=== PATIENT | male | born 1990 ===

== ENCOUNTER 2017-01-04 20:57 | Emergency (ER) | payer OTHER ==
[2017-01-04 21:36] VITALS: BP 140/80; PULSE 66; RESP 18; TEMP 98.3; O2SAT 98
[2017-01-04] MEDS ORDERED: Lidocaine 2% Inj (20ml) INFIL ONE (21:48)
--- NOTE | 2017-01-04 21:51 | C.PDOC ---
History Of Present Illness 26 yo male come in for evaluation of head injury/laceration sustained early today at 6:30PM " when accidentally hit he head over the cabinet at work". Otherwise, pt denies LOC, syncope, headache, dizziness, visual changes, focal deficits, neck pain, denies significant wound bleeding. Ambulate to ED for evaluation, not in any apparent distress. Time Seen by Provider: 01/04/17 21:34 Chief Complaint (Nursing): Abnormal Skin Integrity History Per: Patient Past Medical History Reviewed: Historical Data, Nursing Documentation, Vital Signs Vital Signs: Last Vital Signs Temp 98.3 F 01/04/17 21:34 Pulse 66 01/04/17 21:34 Resp 18 01/04/17 21:34 BP 140/80 01/04/17 21:34 Pulse Ox 98 01/04/17 21:57 - Medical History PMH: No Chronic Diseases Surgical History: No Surg Hx Family History: States: No Known Family Hx - Social History Hx Alcohol Use: No Hx Substance Use: No - Immunization History Hx Tetanus Toxoid Vaccination: No Hx Influenza Vaccination: No Hx Pneumococcal Vaccination: No Review Of Systems Except As Marked, All Systems Reviewed And Found Negative. Constitutional: Negative for: Fever, Chills Eyes: Negative for: Vision Change ENT: Negative for: Ear Discharge, Nose Discharge, Throat Pain Skin: Positive for: Lesions Neurological: Negative for: Weakness, Numbness, Altered Mental Status, Headache , Dizziness Physical Exam - Physical Exam Appears: Well, Non-toxic, No Acute Distress Skin: Normal Color, Warm Head: Normacephalic, No Swelling, Laceration (laceration 1.5cm lemhth, cutaneous , C-shape over top of head, mild bloody oozing noted. No palpable defomrity, no wound FB.) Eye(s): bilateral: PERRL, EOMI Ear(s): Bilateral: Normal Oral Mucosa: Moist Throat: No Drooling Neck: Normal ROM, No Midline Cervical Tenderness, No Paracervical Tenderness, No Step Off Deformity, Supple Extremity: Normal ROM, No Deformity Neurological/Psych: Oriented x3, Normal Speech, Normal Motor, Normal Sensation, Normal Reflexes ED Course And Treatment O2 Sat by Pulse Oximetry: 98 Pulse Ox Interpretation: Normal Progress Note: On re-evaluation, pt is afebrile, hemodynamicaly stable. Nn- toxic. Tolerate Po well in ED. PUlsEOx 98% RA. Head: laceration repaired w/ ruel w/o difficulty. neck: Supple, (-) midine tenderness. Neuorlogicaly intact. Pt advised OBS 48 hrs for any sign of head injury-return to ED at any time if any new changes, advised on wound care. and ref. to f/u with PMD 2 days for re-eavl. return if any new changes. Laceration - Laceration Repair Scalp Wound Length (In cm): 1.5 Description Of Wound: Irregular (C-shape) Anesthesia: Lidocaine 2% Wound Examination: Irrigated With Saline, No FB With Wound Exploration Wound Closure: Fowler (#4) Suture Technique And Material Used: Interrupted Wound Complexity: Simple Disposition Counseled Patient/Family Regarding: Diagnosis, Need For Followup - Disposition Referrals: Non [facility] Provider, [Primary Care Provider] - [facility] [Outside] Disposition: HOME/ ROUTINE Disposition Time: 21:55 Condition: STABLE Additional Instructions: OBSERVE 48 HOURS FOR ANY SIGN OF HEAD INJURY-INTRACTABLE HEADACHE, VOMITING, VISUAL CHANGES, OR ANY OTHER NEW HCANGES-RETURN TO ED IMMEDIATELY FOR RE- EVALUATION. KEEP WOUND CLEAN, DRY RUEL REMOVAL IN 10 DAYS FOLLOW UP WITH PMD IN 2 DAYS FOR WOUND CHECK NEED Instructions: Head Injury (ED), Staple Care (ED) Forms: [employer] ([place]) - Clinical Impression Clinical Impression: Head injury, Scalp laceration
[2017-01-04] MEDS ORDERED: Lidocaine 2% Inj (20ml) ONE (21:54)
== END 2017-01-04 22:19 | disposition home or self-care (01) ==
LOC: C.ER 20:57 → SUPCPDRO 20:57 → C.ER 22:19
DX: S01.01XA Laceration without foreign body of scalp, initial encounter (principal); W22.09XA Striking against other stationary object, initial encounter; Y93.89 Activity, other specified; Y92.89 Other specified places as the place of occurrence of the external cause; Y99.0 Civilian activity done for income or pay